=== PATIENT | female | born 1970 | race Caucasian/White ===

== ENCOUNTER 2017-06-11 21:12 | Inpatient (IN) | payer OTHER ==
[~2017-06-11] VITALS: Ht 152.4 cm; Wt 50.0 kg
[2017-06-11] VITALS (14 sets, daily range): BP systolic 35–135; BP diastolic 30–78; PULSE 30–140; RESP 14–18; TEMP 95–97.1; O2SAT 91–100
[2017-06-11] MEDS ORDERED: PROPOFOL 1000 MG/100 ML INJ 100 ML IV PRN (21:30)
[2017-06-11] MEDS ORDERED: GLUCAGON 1 MG/ML VIAL IM PRN (21:30)
[2017-06-11] MEDS ORDERED: DEXTROSE 50% IN WATER 50 ML VIAL(D50) IV PUSH PRN (21:30)
[2017-06-11] MEDS ORDERED: SODIUM CHLOR 0.9% 1000 ML INJ 1,000 ML IV ONE ×5 (21:30→23:15)
[2017-06-11] MEDS ORDERED: SODIUM CHLORIDE 0.9% FLUSH 10 ML FLUSH IVF PRN (21:30)
--- NOTE | 2017-06-11 21:34 | PD ---
HPI Chief Complaint: Code Blue Time Seen by Provider: 21:23 Travel History International Travel<30 days: No Contact w/Intl Traveler<30days: No Traveled to known affect area: No History of Present Illness HPI The patient is a reportedly a 46 year old female who presents to the [facility] [address] emergency department with a history of being found unresponsive by her family 5 minutes after they last saw her normal taking a pain medication. The pain medication is unknown. The patient is brought in by ambulance services after being found in asystole. The patient in total was given 5 doses of epinephrine while ACLS protocol was followed and chest compressions were provided as well as an endotracheal tube was placed. An 8-1/2 endotracheal tube was placed by ambulance services. The patient was given 80 mEq of bicarbonate, Narcan 2 mg IV, 500 mL of normal saline through an IO in the left main prior to arrival. The patient's blood sugar was noted to be 43. The patient was given D10 prior to arrival. Just prior to arrival the patient had a return of spontaneous circulation with a heart rate in the 140s, sinus tachycardia. The patient's only known medical history is a history of colitis according to the family as told ambulance services. The patient has emesis in her hair noted on arrival. The patient reportedly vomited prior to ambulance services arrival. No other review of systems is able to be obtained in this patient who arrives intubated. [facility] Past Medical History Narrative Medical The patient's past medical history is significant for colitis. Upon the family's arrival the patient was noted to have a history of Crohn's and COPD on home O2. ?: Unknown Past Surgical History Narrative Surgical The patient's past surgical history is unable to be obtained. Upon the family's arrival the patient was reported to have multiple abdominal surgeries related to her history of Crohn's disease. Social History Narrative Social History The patient's social history is unable to be obtained. Tobacco Use: Yes Allergies-Medications (Allergen,Severity, Reaction): Coded Allergies: No Known Allergies (Verified Allergy, Unknown, 06/11/17) aspirin (Verified Allergy, Unknown, 06/11/17) Reported Meds & Prescriptions Reported Meds & Active Scripts Active Reported Oxycodone (Oxycodone HCl) 5 Mg Tab 5 Mg PO Q6HR Colestipol (Colestipol HCl) 1 Gram Tab 6 Gm PO BID Metronidazole 375 Mg Cap 375 Mg PO BID Delzicol (Mesalamine) 400 Mg Cap.drtab. Omeprazole 20 Mg Tab 20 Mg PO DAILY Metoprolol Tartrate 25 Mg Tab 25 Mg PO BID Apriso (Mesalamine) 0.375 Gm Caper 1.5 Gm PO DAILY Narrative Medication The patient's current medications are unable to be obtained. Review of Systems ROS Limitations: Intubated Physical Exam Narrative General: The patient is a thin-appearing female, intubated prior to arrival, currently on a backboard, otherwise with thready distal pulses, palpated carotid pulse on initial arrival. Head and Neck exam: Head is normocephalic atraumatic. Eyes: extraocular motion testing is unable to be accomplished in this patient who arrives unresponsive. Pupils are equal round and reactive to light, 3 mm initially on arrival Nose: Midline septum with pink mucous membranes Mouth: Dentition unremarkable. Moist mucus membranes. Posterior oropharynx is not able to be visualized fully the patient has an 8-1/2 size end[address] tube in place Neck: No palpable lymphadenopathy. No nuchal rigidity. No thyromegaly. Cardiovascular: Sinus tachycardia with a rate in the low 100s, no murmurs, gallops, or rubs audible. Lungs: The patient has decreased breath sounds on the left side, soft expiratory wheezes anteriorly. No rhonchi, no crackles. The endotracheal tube is an 8-1/2 size endotracheal tube that was down at 23 cm at the lip line. This was withdrawn 1 cm. A chest x-ray will be done to evaluate position of endotracheal tube. Abdomen: Soft, without tenderness to palpation in all 4 quadrants of the abdomen. No guarding, rebound, or rigidity. Extremities: No clubbing, cyanosis, or edema. Neurologic Exam: The patient arrives with a GCS of 3. Eyes 1. Motor 1. Verbal- 1. Skin Exam: No rash noted. Intact skin that is cool and diaphoretic. Data Data Last Documented VS Vital Signs Date Time Temp Pulse Resp B/P (MAP) Pulse Ox O2 Delivery O2 Flow Rate FiO2 06/11/17 22:59 95 18 135/78 (97) 100 Ventilator 50 06/11/17 22:06 97.0 Orders Orders Complete Blood Count With Diff (06/11/17 21:21) Comprehensive Metabolic Panel (06/11/17 21:21) Coag Profile (06/11/17 21:21) Creatine Kinase (Cpk) (06/11/17 21:24) Ckmb (Isoenzyme) Profile (06/11/17 21:24) Troponin I (06/11/17 21:24) B-Type Natriuretic Peptide (06/11/17 21:24) Arterial Blood Gas (Abg) (06/11/17 21:24) Beta Hcg (Quant/Titer) (06/11/17 21:24) Magnesium (Mg) (06/11/17 21:24) Chest, Single Ap (06/11/17 21:24) Iv Access Insert/Monitor (06/11/17 21:24) Ecg Monitoring (06/11/17:24) Oximetry (06/11/17 21:24) Urinary Catheter Insert/Apply (06/11/17 21:24) Radha-Gastric Tube Insert/Mon (06/11/17 21:24) Alcohol (Ethanol) (06/11/17 21:24) Salicylates (Aspirin) (06/11/17 21:24) Tylenol (Acetaminophen) (06/11/17 21:24) Propofol 1000 Mg/100 Ml Inj (Diprivan 10 (06/11/17 21:30) ^ Infusion (06/11/17 21:24) RASS (06/11/17 21:24) Neurological Rass Scale BLAINE.Q2H (06/11/17 21:24) Sodium Chlor 0.9% 1000 Ml Inj (Ns 1000 M (06/11/17 21:30) Sodium Chlor 0.9% 1000 Ml Inj (Ns 1000 M (06/11/17 21:30) Sodium Chloride 0.9% Flush (Ns Flush) (06/11/17 21:30) Albuterol-Ipratropium Neb (Duoneb Neb) (06/11/17 21:30) Bedside Glucose Q15M (06/11/17 21:28) Hypoglycemia 70 Mg/Dl Or < (06/11/17 21:28) Dextrose 50% In Lit (Vial) Inj (D50w (Vi (06/11/17 21:30) Glucagon Inj (Glucagon Inj) (06/11/17 21:30) Sodium Chlor 0.9% 1000 Ml Inj (Ns 1000 M (06/11/17 22:00) ^ Infusion (06/11/17 ) Norepinephrine-Dextrose Drip (Levophed-D (06/11/17 22:00) Terbutaline Inj (Brethine Inj) (06/11/17 22:00) Lactic Acid Sepsis Protocol (06/11/17 21:47) Sodium Chlor 0.9% 1000 Ml Inj (Ns 1000 M (06/11/17 22:00) Ct Brain W/O Iv Contrast(Rout) (06/11/17 22:07) CKMB (06/11/17 21:20) CKMB% (06/11/17 21:20) Admit Order (Ed Use Only) (06/11/17 23:00) Phenylephrine Inj (Neosynephrine Inj) (06/11/17 23:00) Terbutaline Inj (Brethine Inj) (06/11/17 23:00) Sodium Chlor 0.9% 1000 Ml Inj (Ns 1000 M (06/11/17 23:15) Labs Laboratory Tests Test 06/11/17 21:20 06/11/17 22:12 06/11/17 22:15 White Blood Count 14.2 TH/MM3 Red Blood Count 4.24 MIL/MM3 Hemoglobin 12.8 GM/DL Hematocrit 42.1 % Mean Corpuscular Volume 99.4 FL Mean Corpuscular Hemoglobin 30.1 PG Mean Corpuscular Hemoglobin Concent 30.3 % Red Cell Distribution Width 14.5 % Platelet Count 155 TH/MM3 Mean Platelet Volume 9.6 FL Neutrophils (%) (Auto) 88.4 % Lymphocytes (%) (Auto) 7.0 % Monocytes (%) (Auto) 4.2 % Eosinophils (%) (Auto) 0.1 % Basophils (%) (Auto) 0.3 % Neutrophils # (Auto) 12.6 TH/MM3 Lymphocytes # (Auto) 1.0 TH/MM3 Monocytes # (Auto) 0.6 TH/MM3 Eosinophils # (Auto) 0.0 TH/MM3 Basophils # (Auto) 0.0 TH/MM3 CBC Comment AUTO DIFF Differential Total Cells Counted 100 Neutrophils % (Manual) 79 % Band Neutrophils % 8 % Lymphocytes % 8 % Monocytes % 2 % Neutrophils # (Manual) 12.8 TH/MM3 Metamyelocytes 1 % Myelocytes 2 % Differential Comment FINAL DIFF MANUAL Atypical Lymphocytes % Platelet Estimate NORMAL Platelet Morphology Comment NORMAL Prothrombin Time 26.3 SEC Prothromb Time International Ratio 2.6 RATIO Activated Partial Thromboplast Time 34.4 SEC Blood Urea Nitrogen 55 MG/DL Creatinine 2.20 MG/DL Random Glucose 196 MG/DL Total Protein 5.5 GM/DL Albumin 2.3 GM/DL Calcium Level 7.7 MG/DL Alkaline Phosphatase 132 U/L Aspartate Amino Transf (AST/SGOT) 8228 U/L Alanine Aminotransferase (ALT/SGPT) 3375 U/L Total Bilirubin 1.4 MG/DL Sodium Level 140 MEQ/L Potassium Level 5.7 MEQ/L Chloride Level 95 MEQ/L Carbon Dioxide Level 27.3 MEQ/L Anion Gap 18 MEQ/L Estimat Glomerular Filtration Rate 19 ML/MIN Magnesium Level 2.6 MG/DL Total Creatine Kinase 382 U/L Creatine Kinase MB 3.8 NG/ML Creatine Kinase MB % 1.0 % Troponin I 0.29 NG/ML B-Type Natriuretic Peptide 1738 PG/ML Human Chorionic Gonadotropin, Quant LESS THAN 1 MIU/ML Salicylates Level LESS THAN 1.7 MG/DL Acetaminophen Level LESS THAN 2.0 MCG/ML Ethyl Alcohol Level LESS THAN 3 MG/DL Blood Gas Puncture Site RT FEMORAL Blood Gas Patient Temperature 98.6 Blood Gas HCO3 13 mmol/L Blood Gas Base Excess -18.6 mmol/L Blood Gas Oxygen Saturation 98 % Arterial Blood pH 6.83 Arterial Blood Partial Pressure CO2 82 mmHg Arterial Blood Partial Pressure O2 517 mmHG Arterial Blood Oxygen Content 16.4 Vol % Arterial Blood Carboxyhemoglobin 0.0 % Arterial Blood Methemoglobin 0.7 % Blood Gas Hemoglobin 10.9 G/DL Oxygen Delivery Device VENT Blood Gas Ventilator Setting SEE COMMENTS Blood Gas Inspired Oxygen 100 % Lactic Acid Level 13.5 mmol/L [facility] Medical Decision Making Medical Screen Exam Complete: Yes Emergency Medical Condition: Yes Medical Record Reviewed: Yes Interpretation(s) Last Impressions Head CT 06/11/[id number] Signed Impressions: Service Date/Time: Sunday, June 11, 2017 23:20 - CONCLUSION: 1. No acute intracranial abnormality is seen. 2. 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 3. Sinus disease. Dorian Friedman MD Chest X-Ray [id number]/11/[id number] Signed Impressions: Service Date/Time: Tushar, June 11, 2017 21:30 - CONCLUSION: Endotracheal tube tip is in the right mainstem bronchus. Lungs are clear. Dorian Rankin MD Differential Diagnosis Cardiopulmonary arrest due to Aspiration versus acute coronary syndrome, versus cardiac arrhythmia, versus accidental narcotic overdose, versus intentional narcotic overdose, versus sepsis Narrative Course During the course of the patients emergency department visit, the patient was placed on a cardiac catheterization technician with oximetry and frequent blood pressure monitoring. The patient had IV access obtained and blood work sent for analysis. A temperature sensing Peoples catheter was placed and the patient was noted to have a core temperature of 95. A bear hugger will be placed on the patient. The patient was started with warm normal saline on a pressure bag to her IO and IV that was placed in the emergency department. A Peoples catheter had no urine noted in the bladder. An OG tube will be placed to low intermittent suction. A chest x-ray has been ordered to assess position of the patient's endotracheal tube due to her decreased breath sounds left side. An EKG done on arrival shows a sinus rhythm with a short MN interval heart rate of 90, QRS duration is 121 ms, QTC 452 ms with nonspecific T-wave abnormalities, T waves are noted to be inverted in V1, aVL, V5, V6. The patient was initially provided normal saline 2 L wide open. DuoNeb 2 were administered. The patients laboratory studies were reviewed and remarkable for a white count of 14.2, hemoglobin 12.8, platelets 155 with neutrophils 79, bands 8, lymphocytes 8. CMP is remarkable for potassium of 5.7, anion gap 18, BUN 55, creatinine 2.20, glucose 196, calcium 7.7, total bilirubin 1.4, AST 8228, ALT 3375, alkaline phosphatase 132, CPK 382, MB percent 1.0, troponin I 0.29, beta hCG is less than 1, BNP 1738. PTT 26.3, INR 2.6, PTT 34.4, acetaminophen less than 2, salicylate less than 1.7, alcohol level less than 3. The patient appears to be in liver failure with coagulopathy and an INR of 2.6 with no known history of being anticoagulated according to the family. A call was placed out to the scientific programmer analyst high tension tester regarding this patient's case. Dr. Stephen agreed to admit the patient for continued evaluation and treatment at this time. The patient continued to decline and became hypotensive again in spite of IV fluid resuscitation. The patient had no urine output noted. The patient continued on IV fluids for resuscitation. The patient was started on Levophed for blood pressure support. Preparations were made for obtaining a central line in the patient. As I was in the process of placing a sterile line in the right groin per the recommendations of the scientific programmer analyst, the scientific programmer analyst arrived at the bedside and assumed care of the patient, placing the line. Radiology studies were reviewed and remarkable for a chest x-ray that shows endotracheal tube to be down in the right mainstem bronchus. I asked respiratory therapy at the bedside to withdraw the tube 2 cm. The patient was admitted to the hospital in critical condition and sent to a bed under the care of , the scientific programmer analyst. Critical Care Narrative Aggregate critical care time was 41 minutes. Time to perform other separately billable procedures was not included in the critical care time. My time did not include minutes spent treating any other patients simultaneously or on activities that did not directly contribute to the patient's treatment. The services I provided to this patient were to treat and/or prevent clinically significant deterioration that could result in: Cardiovascular collapse from sepsis, versus fluid overload related to overfeeding resuscitation, versus hypoxemic brain injury I provided critical care services requiring my management, as noted below: Chart data review, documentation time, medication orders and management, vital sign assessments/reviewing monitor data, ordering and reviewing lab tests, ordering and interpreting/reviewing x-rays and diagnostic studies, care of the patient and discussion of the patient with the admitting physicians. Physician Communication Physician Communication The patient's case including history, pertinent physical examination findings, and laboratory studies were discussed with Dr. Stephen. It was agreed that the patient would be admitted to the scientific programmer analyst service. Diagnosis Primary Impression: Cardiopulmonary arrest with successful resuscitation Admitting Information Admitting Physician Requests: Admit Ermelinda Mcmullen MD Jun 11, 2017 21:34
[2017-06-11 21:42] LABS: AUTOMATED NEUTROPHIL # 12.6 TH/MM3 (1.8-7.7); BASOPHIL % 0.3 % (0.0-2.0); EOSINOPHIL % 0.1 % (0.0-4.0); HEMATOCRIT 42.1 % (35.0-46.0); HEMOGLOBIN 12.8 GM/DL (11.6-15.3); MEAN CELL VOLUME 99.4 FL (80.0-100.0); MEAN CORPUSCULAR HEMOGLOBIN 30.1 PG (27.0-34.0); MEAN CORPUSCULAR HGB CONC 30.3 % (32.0-36.0); MEAN PLATELET VOLUME 9.6 FL (7.0-11.0); MONO % 4.2 % (0.0-8.0); MONOCYTE # 0.6 TH/MM3 (0-0.9); NEUT % 88.4 % (16.0-70.0); PLATELET COUNT 155 TH/MM3 (150-450); RED BLOOD COUNT 4.24 MIL/MM3 (4.00-5.30); RED CELL DISTRIBUTION WIDTH 14.5 % (11.6-17.2); WHITE BLOOD COUNT 14.2 TH/MM3 (4.0-11.0)
[2017-06-11 21:52] LABS: INTERNATIONAL NORMALIZED RATIO 2.6 RATIO; PROTHROMBIN TIME - PATIENT 26.3 SEC (9.8-11.6)
[2017-06-11] MEDS: RESP: ALBUTEROL 2.5 MG/IPRATROPIUM 0.5 MG NEB (SCH) INH ×2 (21:55→22:05)
--- NOTE | 2017-06-11 21:58 | RADRPT ---
EXAM DATE/TIME: 06/11/2017 21:30 [facility] COMPARISON: No previous studies available for comparison. INDICATIONS : Post intubation. MEDICAL HISTORY : None. SURGICAL HISTORY : None. ENCOUNTER: Initial ACUITY: 1 day PAIN SCORE: Non-responsive. LOCATION: Bilateral chest FINDINGS: Endotracheal tube tip is in the right mainstem bronchus. Lungs are clear. No pleural effusion seen. No pneumothorax. CONCLUSION: Endotracheal tube tip is in the right mainstem bronchus. Lungs are clear. Dorian Rankin MD on June 11, 2017 at 21:55 Board Certified Radiologist. This report was verified electronically.
[2017-06-11] MEDS ORDERED: NOREPINEPHRINE-DEXTROSE DRIP 250 ML IV PRN (22:00)
[2017-06-11] MEDS ORDERED: TERBUTALINE INJ 1 MG/ML AMP SQ PRN ×2 (22:00→23:00)
[2017-06-11 22:04] LABS: MAGNESIUM 2.6 MG/DL (1.5-2.5)
[2017-06-11 22:09] LABS: ACETAMINOPHEN LESS THAN 2.0 MCG/ML (10.0-30.0); TROPONIN I 0.29 NG/ML (0.02-0.05)
[2017-06-11 22:19] LABS: BANDS 8 % (0-6); LYMPHOCYTES 8 % (9-44); METAMYELOCYTES 1 % (0-1); MONOCYTES 2 % (0-8); MYELOCYTES 2 % (0-0); NEUTROPHIL # MANUAL DIFF 12.8 TH/MM3 (1.8-7.7); POLYS (SEG NEUTROPHILS) 79 % (16-70)
[2017-06-11 22:20] LABS: ALBUMIN 2.3 GM/DL (3.4-5.0); ALKALINE PHOSPHATASE 132 U/L (45-117); ALT (GPT) 3375 U/L (10-53); AST (GOT) 8228 U/L (15-37); BICARBONATE 27.3 MEQ/L (21.0-32.0); BLOOD UREA NITROGEN 55 MG/DL (7-18); CALCIUM 7.7 MG/DL (8.5-10.1); CHLORIDE 95 MEQ/L (98-107); GLOMERULAR FILTRATION RATE 19 ML/MIN (>89); GLUCOSE,RANDOM 196 MG/DL (74-106); SODIUM (NA) 140 MEQ/L (136-145); TOTAL BILIRUBIN ADULT 1.4 MG/DL (0.2-1.0); TOTAL PROTEIN 5.5 GM/DL (6.4-8.2)
[2017-06-11] MEDS ORDERED: PHENYLEPHRINE INJ 40 MG in DEXTROSE 5% IN WATE 500 ML INJ 496 ML IV PRN ×2 (23:00)
[2017-06-11 23:02] LABS: LACTIC ACID SEPSIS PROTOCOL 13.5 mmol/L (0.4-2.0)
[2017-06-11] MEDS ORDERED: RESP: ALBUTEROL 2.5 MG/IPRATROPIUM 0.5 MG NEB (PRN) INH (23:15)
[2017-06-11] MEDS ORDERED: FAMOTIDINE 20 MG/2 ML VIAL IV PUSH SCH (23:15)
[2017-06-11] MEDS ORDERED: CHLORHEXIDINE GLUCONATE 2 % 1 PACK (2 CLOTHS) TOP PRN (23:15)
[2017-06-11] MEDS ORDERED: MISCELLANEOUS NURSING INFORMATION XX SCH (23:15)
[2017-06-11] MEDS ORDERED: SODIUM CHLORIDE 0.9% FLUSH 10 ML FLUSH IV FLUSH PRN (23:15)
[2017-06-11] MEDS ORDERED: VASOPRESSIN INJ 40 UNITS in DEXTROSE 5% IN WATER 100ML INJ 98 ML IV SCH ×2 (23:38)
[2017-06-11] MEDS ORDERED: OXYC-392 PO (23:39)
[2017-06-11] MEDS ORDERED: METR1CAP PO (23:39)
[2017-06-11] MEDS ORDERED: APRI0.372 PO (23:39)
[2017-06-11] MEDS ORDERED: METO25TA3 PO (23:39)
[2017-06-11] MEDS ORDERED: MESA400C (23:39)
[2017-06-11] MEDS ORDERED: COLE1TAB2 PO (23:39)
[2017-06-11] MEDS ORDERED: OMEP20TA93 PO (23:39)
[2017-06-11] MEDS ORDERED: SODIUM BICARBONATE 8.4% INJ 150 MEQ in DEXTROSE 5% IN WATE 1000ML INJ 1,000 ML IV SCH ×2 (23:45)
--- NOTE | 2017-06-11 23:56 | RADRPT ---
EXAM DATE/TIME: 06/11/2017 23:20 [facility] COMPARISON: No previous studies available for comparison. INDICATIONS : Found unresponsive. RADIATION DOSE: 34.45 CTDIvol (mGy) MEDICAL HISTORY : Non-responsive. SURGICAL HISTORY : Non-responsive. ENCOUNTER: Initial ACUITY: 1 day PAIN SCALE: Non-responsive LOCATION: cranial TECHNIQUE: Multiple contiguous axial images were obtained of the head. Using automated exposure control and adj ustment of the mA and/or kV according to patient size, radiation dose was kept as low as reasonably a chievable to obtain optimal diagnostic quality images. DICOM format image data is available electro nically for review and comparison. FINDINGS: CEREBRUM: The ventricles are normal for age. There is a 0.9 cm area of low density in the medial right tempora l lobe likely related to choroidal fissure cyst given the location. No evidence of midline shift, mas s lesion, hemorrhage or acute infarction. No extra-axial fluid collections are seen. POSTERIOR FOSSA: The cerebellum and brainstem are intact. The 4th ventricle is midline. The cerebellopontine angle i s unremarkable. EXTRACRANIAL: The visualized portion of the orbits is intact. There is increased density seen throughout the sinuse s. SKULL: The calvaria is intact. No evidence of skull fracture. CONCLUSION: 1. No acute intracranial abnormality is seen. 2. 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 3. Sinus disease. Dorian Friedman MD on June 11, 2017 at 23:50 Board Certified Radiologist. This report was verified electronically.
[2017-06-12] MEDS ORDERED: EPINEPHrine (1:1000) INJ 2 MG in DEXTROSE 5% IN WATER INJ 250 ML IV PRN ×2
[2017-06-12] MEDS ORDERED: PIPERACIL-TAZO 2.25 GM PREMIX 50 ML IV SCH
[2017-06-12] MEDS ORDERED: HYDROCORTISONE SOD SUCCINATE 100 MG VIAL IV PUSH SCH
--- NOTE | 2017-06-12 00:27 | HHI.HP ---
[facility] Service Critical Care Medicine Primary Care Physician Admission Diagnosis Post cardiac arrest, liver failure, acute renal failure Diagnosis: Chief Complaint: Cardiac arrest Travel History International Travel<30 Days: No Contact w/Intl Traveler <30 Da: No Traveled to Known Affected Are: No Sepsis Criteria SIRS Criteria (2 or more): Temp > 100.9 or < 96.8, WBC > 08977, < 4000 or > 10 % bands Sepsis Criteria (SIRS+source): Infect source susp/known Severe Sepsis (+one): Organ Dysfunction, Hypotension, Acute Oliguria/Renal Failure Septic Shock Criteria: Lactic acid >=4 Multiple Organ Dysfunction Syn: Evidence -2 organs failing Criteria Outcome: Meets multiple organ dys. criteria History of Present Illness 46-year-old female with a medical history significant for Crohn's disease, COPD on home oxygen who was recently discharged from [facility] after being admitted there for a week for Crohn's disease exacerbation. She has been extremely weak since her discharge barely moving around and over the last 2 days getting disoriented and confused with diaphoresis. Today patient went to the bathroom and about a few minutes later was noted to be unresponsive by her daughter on the floor. EMS was called. Patient was noted to be in asystole. She received 5 doses of epinephrine/ACLS protocol and was intubated in the field. She received Narcan, ADD ME Q's of bicarbonate 20 IO in the left main prior to arrival to the ER. Blood sugar was noted to be 43 for which she received D10 prior to arrival. Patient had approximately 20 minutes of CPR following which she had return of spontaneous circulation. Following arrival in the ER she was started on Levophed for pressor support after receiving 4 L normal saline bolus as she was extremely hypotensive and had significant metabolic acidosis and elevated LFTs. I evaluated the patient on being notified by Dr. Mcmullen in the ER. I emergently placed a right femoral central venous catheter with ultrasound guidance. Patient remained comatose with no response to painful stimuli. She was on 20 mics of Levophed for pressor support. Head CT without contrast was negative for any intracranial hemorrhage. History PFSH Past Medical History Narrative Medical The patient's past medical history is significant for Crohn's disease, COPD on home oxygen ?: Unknown Past Surgical History Narrative Surgical Multiple abdominal surgeries previously Social History Narrative Social History The patient's social history is unable to be obtained. Allergies-Medications Allergies-Medications (Allergen,Severity, Reaction): Coded Allergies: No Known Allergies (Verified Allergy, Unknown, 06/11/17) Narrative Medication Colestipol, Delzicol, Apriso, Omeprazole, Metoprolol ROS Review of Systems ROS Limitations: Intubated Physical Exam Vital Signs Vital Signs Date Time Temp Pulse Resp B/P (MAP) Pulse Ox O2 Delivery O2 Flow Rate FiO2 06/11/17 22:59 95 18 135/78 (97) 100 Ventilator 50 06/11/17 22:47 91 80/50 06/11/17 22:43 90 18 107/57 (74) 95 Ventilator 50 06/11/17 22:15 80 18 81/53 (62) 95 Ventilator 100 06/11/17 22:06 97.0 06/11/17 22:05 81 18 60/45 (50) 97 Ventilator 100 06/11/17 21:54 100 06/11/17 21:48 84 18 70/40 (50) Ventilator 100 06/11/17 21:45 98 100 06/11/17 21:42 Ventilator 100 06/11/17 21:23 110 16 104/60 (75) 06/11/17 21:18 95.5 110 14 104/60 (75) Ventilator 100 Physical Exam HEENT/ Neuro: Comatose, unresponsive to painful stimuli, pupils 3 mm bilaterally reactive initially, orally intubated, Pallor present, no icterus, tongue/ mucosa moist Neck: No JVD Chest/Pulm: on mech vent, good air entry bilaterally, no wheezing or crackles CVS: S1-S2 regular, no murmur GI/abdomen: soft, nontender, bowel sounds sluggish Extremities: warm bilaterally, no edema Laboratory Laboratory Tests Test 06/11/17 21:20 06/11/17 22:12 06/11/17 22:15 White Blood Count 14.2 Red Blood Count 4.24 Hemoglobin 12.8 Hematocrit 42.1 Mean Corpuscular Volume 99.4 Mean Corpuscular Hemoglobin 30.1 Mean Corpuscular Hemoglobin Concent 30.3 Red Cell Distribution Width 14.5 Platelet Count 155 Mean Platelet Volume 9.6 Neutrophils (%) (Auto) 88.4 Lymphocytes (%) (Auto) 7.0 Monocytes (%) (Auto) 4.2 Eosinophils (%) (Auto) 0.1 Basophils (%) (Auto) 0.3 Neutrophils # (Auto) 12.6 Lymphocytes # (Auto) 1.0 Monocytes # (Auto) 0.6 Eosinophils # (Auto) 0.0 Basophils # (Auto) 0.0 CBC Comment AUTO DIFF Differential Total Cells Counted 100 Neutrophils % (Manual) 79 Band Neutrophils % 8 Lymphocytes % 8 Monocytes % 2 Neutrophils # (Manual) 12.8 Metamyelocytes 1 Myelocytes 2 Differential Comment FINAL DIFF MANUAL Atypical Lymphocytes Platelet Estimate NORMAL Platelet Morphology Comment NORMAL Prothrombin Time 26.3 Prothromb Time International Ratio 2.6 Activated Partial Thromboplast Time 34.4 Blood Urea Nitrogen 55 Creatinine 2.20 Random Glucose 196 Total Protein 5.5 Albumin 2.3 Calcium Level 7.7 Alkaline Phosphatase 132 Aspartate Amino Transf (AST/SGOT) 8228 Alanine Aminotransferase (ALT/SGPT) 3375 Total Bilirubin 1.4 Sodium Level 140 Potassium Level 5.7 Chloride Level 95 Carbon Dioxide Level 27.3 Anion Gap 18 Estimat Glomerular Filtration Rate 19 Magnesium Level 2.6 Total Creatine Kinase 382 Creatine Kinase MB 3.8 Creatine Kinase MB % 1.0 Troponin I 0.29 B-Type Natriuretic Peptide 1738 Human Chorionic Gonadotropin, Quant LESS THAN 1 Salicylates Level LESS THAN 1.7 Acetaminophen Level LESS THAN 2.0 Ethyl Alcohol Level LESS THAN 3 Blood Gas Puncture Site RT FEMORAL Blood Gas Patient Temperature 98.6 Blood Gas HCO3 13 Blood Gas Base Excess -18.6 Blood Gas Oxygen Saturation 98 Arterial Blood pH 6.83 Arterial Blood Partial Pressure CO2 82 Arterial Blood Partial Pressure O2 517 Arterial Blood Oxygen Content 16.4 Arterial Blood Carboxyhemoglobin 0.0 Arterial Blood Methemoglobin 0.7 Blood Gas Hemoglobin 10.9 Oxygen Delivery Device VENT Blood Gas Ventilator Setting SEE COMMENTS Blood Gas Inspired Oxygen 100 Lactic Acid Level 13.5 Date/Time Source Procedure Growth Status 06/11/17 23:35 Blood Peripheral Aerobic Blood Culture Pending Received 06/11/17 23:35 Blood Peripheral Anaerobic Blood Culture Pending Received 06/11/17 23:45 Sputum Endotracheal Gram Stain Pending Received 06/11/17 23:45 Sputum Endotracheal Sputum Culture Pending Received Result Diagram: 06/11/17211906/11/172119 Imaging Head CT without contrast which was personally reviewed: No evidence of intracranial hemorrhage. Last Impressions Chest X-Ray 06/11/172123 Signed Impressions: Service Date/Time: Sunday, June 11, 2017 21:30 - CONCLUSION: Endotracheal tube tip is in the right mainstem bronchus. Lungs are clear. Dorian Rankin MD Septic Shock Reassessment Septic shock perfusion: reassessment completed Caprini VTE Risk Assessment Caprini VTE Risk Assessment: Mod/High Risk (score >= 2) Caprini Risk Assessment Model Point Value = 1 Point Value = 2 Point Value = 3 Point Value = 5 Age 41-60 Minor surgery BMI > 25 kg/m2 Swollen legs Varicose veins or History of unexplained or recurrent spontaneous Oral contraceptives or hormone replacement Sepsis (< 1 month) Serious lung disease, including pneumonia (< 1 month) Abnormal pulmonary function Acute myocardial infarction Congestive heart failure (< 1 month) History of inflammatory bowel disease Medical patient at bed rest Age 61-74 Arthroscopic surgery Major open surgery (> 45 min) Laparoscopic surgery (> 45 min) Malignancy Confined to bed (> 72 hours) Immobilizing plaster cast Central venous access Age >= 75 History of VTE Family history of VTE Factor V Leiden Prothrombin [id number] Lupus anticoagulant Anticardiolipin antibodies Elevated serum homocysteine Heparin-induced thrombocytopenia Other congenital or acquired thrombophilia Stroke (< 1 month) Elective arthroplasty Hip, pelvis, or leg fracture Acute spinal cord injury (< 1 month) Prophylaxis Regimen Total Risk Factor Score Risk Level Prophylaxis Regimen 0-1 Low Early ambulation 2 Moderate Order ONE of the following: *Sequential Compression Device (SCD) *Heparin 5000 units SQ BID 3-4 Higher Order ONE of the following medications: *Heparin 5000 units SQ TID *Enoxaparin/Lovenox 40 mg SQ daily (WT < 150 kg, CrCl > 30 mL/min) *Enoxaparin/Lovenox 30 mg SQ daily (WT < 150 kg, CrCl > 10-29 mL/min) *Enoxaparin/Lovenox 30 mg SQ BID (WT < 150 kg, CrCl > 30 mL/min) AND/OR *Sequential Compression Device (SCD) 5 or more Highest Order ONE of the following medications: *Heparin 5000 units SQ TID (Preferred with Epidurals) *Enoxaparin/Lovenox 40 mg SQ daily (WT < 150 kg, CrCl > 30 mL/min) *Enoxaparin/Lovenox 30 mg SQ daily (WT < 150 kg, CrCl > 10-29 mL/min) *Enoxaparin/Lovenox 30 mg SQ BID (WT < 150 kg, CrCl > 30 mL/min) AND *Sequential Compression Device (SCD) Assessment and Plan Assessment and Plan 46-year-old female with: Cardiac arrest status post CPR Suspected Anoxic encephalopathy Shock Possible PE Possible septic shock Acute respiratory failure on mechanical ventilation Lactic acidosis Crohn's disease exacerbation COPD on home oxygen Coagulopathy Hypoglycemia Plan: Neuro: Follow neuro status. EEG in a.m. Neurology consult requested due to concern for anoxic encephalopathy. Cardiovascular: Aggressive fluid resuscitation. Received 4 L normal saline earlier. Levophed for pressor support. Add stress dose steroids. Pulmonary: Mechanical ventilation PRBC mode. Follow-up repeat ABGs. Bronchodilators as needed. GI/liver: Nothing by mouth for now Renal/: Strict intake output, monitor and replete electrolytes, follow BUN creatinine. IV hydration. Bicarbonate drip ordered ID: Pancultures ordered. Empiric antibiotic coverage with IV Zosyn ordered. Heme: Follow CBC and coags. Endocrine: Watch for hypoglycemia. D5 water with 150 ME Q's of bicarbonate at 1 50 cc per hour ordered. Follow-up fingerstick glucose. Prophylaxis: Pepcid/SCDs/subcutaneous heparin Condition extremely critical. Discussed with patient's daughters at bedside regarding current clinical condition including high risk of instability and cardiac arrest reoccurring. They voiced understanding and were agreeable with plan of care. D/W Dr. Mcmullen in ER, D/W [employer]. Time spent on critical care excluding procedures 70 minutes Addendum: While I was in the emergency room him a patient developed bradycardia and went into cardiac arrest once again. CPR/ACLS protocol initiated however patient remained in cardiac arrest and after about 20 minutes of ACLS, CPR was stopped and patient was pronounced at 12:05 AM on 06/12/2017. Patient's daughters were informed regarding recurrent cardiac arrest and regarding patient expiration and they voiced understanding. Adelso Stephen MD Jun 12, 2017 00:27
--- NOTE | 2017-06-12 00:29 | DEATH SUM ---
Summary Demographics Date Pronounced : Jun 12, 2017 Time Of : 00:05 Pronounced By: Adelso Stephen Preliminary Cause of : Cardiac arrest Adelso Stephen MD Jun 12, 2017 00:29
--- NOTE | 2017-06-12 00:36 | HHI.DS ---
Summary Note Date of : Jun 12, 2017 Time Of : 00:05 Admission Date Jun 11, 2017 at 23:02 Admitting Diagnosis Post cardiac arrest, liver failure, acute renal failure Diagnosis at Time of : (1) Cardiac arrest ICD Code: I46.9 - Cardiac arrest, cause unspecified Diagnosis: Principal (2) NOMI (acute kidney injury) ICD Code: N17.9 - Acute kidney failure, unspecified (3) Acute respiratory failure ICD Code: J96.00 - Acute respiratory failure, unspecified whether with hypoxia or hypercapnia (4) Encephalopathy ICD Code: G93.40 - Encephalopathy, unspecified (5) Lactic acidosis ICD Code: E87.2 - Acidosis (6) Septic shock ICD Code: A41.9 - Sepsis, unspecified organism; R65.21 - Severe sepsis with septic shock Diagnosis: Principal (7) Elevated LFTs ICD Code: R79.89 - Other specified abnormal findings of blood chemistry (8) Crohns disease ICD Code: K50.90 - Crohn's disease, unspecified, without complications Procedures Right femoral vein central venous catheter placement with ultrasound guidance CPR Defibrillation Brief History 46-year-old female with a medical history significant for Crohn's disease, COPD on home oxygen who was recently discharged from [facility] after being admitted there for a week for Crohn's disease exacerbation. She has been extremely weak since her discharge barely moving around and over the last 2 days getting disoriented and confused with diaphoresis. Today patient went to the bathroom and about a few minutes later was noted to be unresponsive by her daughter on the floor. EMS was called. Patient was noted to be in asystole. She received 5 doses of epinephrine/ACLS protocol and was intubated in the field. She received Narcan, ADD ME Q's of bicarbonate 20 IO in the left main prior to arrival to the ER. Blood sugar was noted to be 43 for which she received D10 prior to arrival. Patient had approximately 20 minutes of CPR following which she had return of spontaneous circulation. Following arrival in the ER she was started on Levophed for pressor support after receiving 4 L normal saline bolus as she was extremely hypotensive and had significant metabolic acidosis and elevated LFTs. I evaluated the patient on being notified by Dr. Mcmullen in the ER. I emergently placed a right femoral central venous catheter with ultrasound guidance. Patient remained comatose with no response to painful stimuli. She was on 20 mics of Levophed for pressor support. Head CT without contrast was negative for any intracranial hemorrhage. History PFSH Past Medical History Narrative Medical The patient's past medical history is significant for Crohn's disease, COPD on home oxygen ?: Unknown Past Surgical History Narrative Surgical Multiple abdominal surgeries previously Social History Narrative Social History The patient's social history is unable to be obtained. Allergies-Medications Allergies-Medications (Allergen,Severity, Reaction): Coded Allergies: No Known Allergies (Verified Allergy, Unknown, 06/11/17) Narrative Medication Colestipol, Delzicol, Apriso, Omeprazole, Metoprolol ROS Review of Systems ROS Limitations: Intubated CBC/BMP: 06/11/17211906/11/172119 Significant Findings Laboratory Tests Test 06/11/17 21:20 06/11/17 22:12 06/11/17 22:15 White Blood Count 14.2 TH/MM3 (4.0-11.0) Mean Corpuscular Hemoglobin Concent 30.3 % (32.0-36.0) Neutrophils (%) (Auto) 88.4 % (16.0-70.0) Lymphocytes (%) (Auto) 7.0 % (9.0-44.0) Neutrophils # (Auto) 12.6 TH/MM3 (1.8-7.7) Neutrophils % (Manual) 79 % (16-70) Band Neutrophils % 8 % (0-6) Lymphocytes % 8 % (9-44) Neutrophils # (Manual) 12.8 TH/MM3 (1.8-7.7) Myelocytes 2 % (0-0) Prothrombin Time 26.3 SEC (9.8-11.6) Activated Partial Thromboplast Time 34.4 SEC (24.3-30.1) Blood Urea Nitrogen 55 MG/DL (7-18) Creatinine 2.20 MG/DL (0.50-1.00) Random Glucose 196 MG/DL (74-106) Total Protein 5.5 GM/DL (6.4-8.2) Albumin 2.3 GM/DL (3.4-5.0) Calcium Level 7.7 MG/DL (8.5-10.1) Alkaline Phosphatase 132 U/L (45-117) Aspartate Amino Transf (AST/SGOT) 8228 U/L (15-37) Alanine Aminotransferase (ALT/SGPT) 3375 U/L (10-53) Total Bilirubin 1.4 MG/DL (0.2-1.0) Potassium Level 5.7 MEQ/L (3.5-5.1) Chloride Level 95 MEQ/L (98-107) Anion Gap 18 MEQ/L (5-15) Estimat Glomerular Filtration Rate 19 ML/MIN (>89) Magnesium Level 2.6 MG/DL (1.5-2.5) Total Creatine Kinase 382 U/L (26-192) Creatine Kinase MB 3.8 NG/ML (0.5-3.6) Troponin I 0.29 NG/ML (0.02-0.05) B-Type Natriuretic Peptide 1738 PG/ML (0-100) Salicylates Level LESS THAN 1.7 MG/DL Acetaminophen Level LESS THAN 2.0 MCG/ML Blood Gas HCO3 13 mmol/L (22-26) Blood Gas Base Excess -18.6 mmol/L (-2-2) Arterial Blood pH 6.83 (7.380-7.420) Arterial Blood Partial Pressure CO2 82 mmHg (38-42) Arterial Blood Partial Pressure O2 517 mmHG (61-120) Blood Gas Hemoglobin 10.9 G/DL (12.0-16.0) Lactic Acid Level 13.5 mmol/L (0.4-2.0) Imaging Head CT without contrast which was personally reviewed: No evidence of intracranial hemorrhage. Last Impressions Chest X-Ray 06/11/172123 Signed Impressions: Service Date/Time: Sunday, June 11, 2017 21:30 - CONCLUSION: Endotracheal tube tip is in the right mainstem bronchus. Lungs are clear. Dorian Rankin MD Hospital Course Patient was brought in as a cardiac arrest with return of spontaneous circulation. While in the ER patient went into another cardiac arrest, CPR/ ACLS protocol initiated however patient remained unresponsive/comatose with absent pulse following 20 minutes of ACLS protocol and CPR was stopped at 12:05 AM on 06/12/2017 and patient was pronounced . Patient's daughters were informed regarding her current cardiac arrest and patient expiration in the ER and they voiced understanding. Adelso Stephen MD Jun 12, 2017 00:36
--- NOTE | 2017-06-12 00:38 | PD.PROCEDR ---
Central Line Procedure REASON FOR PROCEDURE Central venous access PROCEDURE PERFORMED Central line placement: Right femoral vein with ultrasound guidance CONSENT Informed consent for procedure was not obtained as this was an emergent procedure in a hypotensive patient requiring pressors following cardiac arrest. ANESTHESIA Local injection of 1% Lidocaine DESCRIPTION OF THE PROCEDURE The patient was placed in supine, mild Trendelenburg position. The area was exposed and cleansed with ChloraPrep, times two. Large sterile drape was used to cover the patient, with the site exposed, under sterile conditions including cap, face mask, sterile gown, and sterile gloves. On single attempt, the introducer needle was inserted with negative pressure in syringe and venous flash was obtained. The guide wire was then advanced without any restriction and the needle was removed. The dilator was used without any complications. Using Seldinger technique the 20 cm antimicrobial coated triple lumen catheter was advanced over the guide wire to a depth of 19 centimeters. The guide wire was removed. All ports were aspirated with dark venous blood return and flushed easily with sterile saline. All ports were capped. Antibiotic disc was placed around central line at puncture site. The central line was secured to the skin with two interrupted 2.0 silk sutures. The area was bandaged with sterile see-through central line bandage. RADIOLOGICAL DATA Ultrasound guidance was used to locate right femoral vein. COMPLICATIONS: No apparent complications ESTIMATED BLOOD LOSS: 8 cc. Adelso Stephen MD Jun 12, 2017 00:38
--- NOTE | 2017-06-12 00:40 | PD.PROCEDR ---
Procedure Note Procedure Date of procedure 06/11/2017 Procedure: CPR initiated on 06/11/2017 at 11:45 PM Description: Patient became bradycardic and subsequently went into cardiac arrest. CPR/ACLS protocol initiated. Patient remained in cardiac arrest with absent pulse and following 20 minutes off ACLS protocol, CPR was stopped at 12: 05 AM on 06/12/2017 and patient was declared . Please see ACLS code sheet for details. Patient's daughter as well as informed regarding her expiration in the ER and he voiced understanding. Adelso Stephen MD Jun 12, 2017 00:40
[2017-06-12] MEDS ORDERED: RESP: ALBUTEROL 2.5 MG/IPRATROPIUM 0.5 MG NEB (SCH) NEB (04:00)
[2017-06-12] MEDS ORDERED: CHLORHEXIDINE GLUCONATE 2 % 1 PACK (2 CLOTHS) TOP SCH (04:00)
[2017-06-12] MEDS ORDERED: CHLORHEXIDINE 0.12% (ORAL KIT) 15 ML CUP MT SCH (08:00)
[2017-06-12] MEDS ORDERED: SODIUM CHLORIDE 0.9% FLUSH 10 ML FLUSH IV FLUSH SCH (09:00)
--- NOTE | 2017-06-12 15:39 | EKG ---
Date Performed: 06/11/2017 Time Performed: 21:36:03 PTAGE: 47 years EKG: Sinus rhythm WITH SHORT VT INTERVAL POSSIBLE LEFT ATRIAL ENLARGEMENT MODERATE INTRAVENTRICULAR CONDUCTION DELAY S T DEVIATION AND MODERATE T-WAVE ABNORMALITY, CONSIDER LATERAL ISCHEMIA ABNORMAL ECG NO PREVIOUS TRACING DOCTOR: Mendel Herrera Interpretating Date/Time 06/12/2017 15:37:04
== END 2017-06-12 00:05 | disposition expired | DRG 871 ==
LOC: NEPE 21:12 → NEDA 23:02 → EDBD 23:02
PROVIDERS: ADMIT Internal Medicine Critical Care Medicine; ATTEND Internal Medicine Critical Care Medicine
PROC: 5A1935Z Respiratory Ventilation, Less than 24 Consecutive Hours (ICD-10-PCS; principal; 2017-06-11)
PROC: 5A12012 Performance of Cardiac Output, Single, Manual (ICD-10-PCS; 2017-06-11)
PROC: 5A2204Z Restoration of Cardiac Rhythm, Single (ICD-10-PCS; 2017-06-11)
PROC: 06HY33Z Insertion of Infusion Device into Lower Vein, Percutaneous Approach (ICD-10-PCS; 2017-06-11)
DX: A41.9 Sepsis, unspecified organism (principal); J96.00 Acute respiratory failure, unspecified whether with hypoxia or hypercapnia; I46.9 Cardiac arrest, cause unspecified; R65.21 Severe sepsis with septic shock; G93.1 Anoxic brain damage, not elsewhere classified; N17.9 Acute kidney failure, unspecified; K50.90 Crohn's disease, unspecified, without complications; D68.9 Coagulation defect, unspecified; E87.2 Acidosis; K72.90 Hepatic failure, unspecified without coma; J44.9 Chronic obstructive pulmonary disease, unspecified; E16.2 Hypoglycemia, unspecified; Z72.0 Tobacco use; Z99.81 Dependence on supplemental oxygen
CPT/HCPCS: 31500; 36600; 43753; 51702; 70450; 71045; 80053; 80307; 82550; 82552; 82805; 83605; 83735; 83880; 84484; 84702; 85007; 85027; 85610; 85730; 87040; 87070; 87205; 92950; 93005; 94640; 94664; 96361; 96374; J7030